=== PATIENT | female | born 1945 | race Caucasian/White ===

== ENCOUNTER 2017-12-13 09:10 | Outpatient (CLI) | payer OTHER | END 2017-12-13 09:17 | disposition home or self-care (01) | LOC: MAMO-SONO 09:10 → NUCLEAR 10:00 | DX: Z12.31 Encounter for screening mammogram for malignant neoplasm of breast (principal); Z87.898 Personal history of other specified conditions; N62 Hypertrophy of breast ==

== ENCOUNTER 2017-12-13 10:07 | Outpatient (CLI) | payer OTHER | END 2017-12-13 10:30 | disposition home or self-care (01) | LOC: NUCLEAR 10:07 | DX: M81.0 Age-related osteoporosis without current pathological fracture (principal) ==

== ENCOUNTER 2018-12-17 08:21 | Outpatient (CLI) | payer OTHER | END 2018-12-17 19:30 | disposition home or self-care (01) | LOC: NUCLEAR 08:21 | DX: I87.2 Venous insufficiency (chronic) (peripheral) (principal) ==

== ENCOUNTER 2019-04-17 09:18 | Outpatient (CLI) | payer OTHER | END 2019-04-17 09:33 | disposition home or self-care (01) | LOC: SONOGRAMA 09:18 | DX: R10.84 Generalized abdominal pain (principal) ==

== ENCOUNTER 2019-12-29 10:48 | Outpatient (CLI) | payer OTHER | END 2019-12-29 10:59 | disposition home or self-care (01) | LOC: NUCLEAR 10:48 | PROVIDERS: ATTEND Internal Medicine Cardiovascular Disease | DX: M81.0 Age-related osteoporosis without current pathological fracture (principal) ==

== ENCOUNTER → 2019-12-29 | Outpatient (CLI) | payer OTHER | END | disposition home or self-care (01) | LOC: MAMO-SONO 09:44 | PROVIDERS: ATTEND Internal Medicine Cardiovascular Disease | DX: E04.2 Nontoxic multinodular goiter (principal); Z12.31 Encounter for screening mammogram for malignant neoplasm of breast; N64.59 Other signs and symptoms in breast ==

== ENCOUNTER 2020-11-25 08:37 | Outpatient (CLI) | payer OTHER | END 2020-11-25 08:46 | disposition home or self-care (01) | LOC: RAD 08:37 | DX: M25.562 Pain in left knee (principal) ==

== ENCOUNTER 2021-12-29 09:35 | Outpatient (CLI) | payer OTHER | END 2021-12-29 09:36 | disposition home or self-care (01) | LOC: MAMO-SONO 09:35 | PROVIDERS: ATTEND Internal Medicine Cardiovascular Disease | DX: N63.11 Unspecified lump in the right breast, upper outer quadrant (principal) ==

== ENCOUNTER 2021-12-29 11:13 | Outpatient (CLI) | payer OTHER | END 2021-12-29 11:16 | disposition home or self-care (01) | LOC: NUCLEAR 11:13 | DX: M85.80 Other specified disorders of bone density and structure, unspecified site (principal) ==

== ENCOUNTER → 2022-06-01 | Outpatient (CLI) | payer OTHER | END | disposition home or self-care (01) | LOC: TOM 06:59 | PROVIDERS: ATTEND Internal Medicine Cardiovascular Disease | DX: M12.9 Arthropathy, unspecified (principal) ==

== ENCOUNTER 2022-07-13 08:45 | Outpatient (CLI) | payer OTHER | END 2022-07-13 09:01 | disposition home or self-care (01) | LOC: RAD 08:45 | PROVIDERS: ATTEND Orthopaedic Surgery | DX: M25.512 Pain in left shoulder (principal); M25.551 Pain in right hip; M25.552 Pain in left hip; M25.561 Pain in right knee; M25.562 Pain in left knee ==

== ENCOUNTER → 2022-08-03 | Outpatient (CLI) | payer OTHER | END | disposition home or self-care (01) | LOC: SONOGRAMA 07:22 | DX: N01.3 Rapidly progressive nephritic syndrome with diffuse mesangial proliferative glomerulonephritis (principal) ==

== ENCOUNTER 2022-08-20 09:07 | Outpatient (CLI) | payer OTHER ==
[~2022-08-20] VITALS: Ht 152.4 cm; Wt 66.2 kg
== END 2022-08-20 09:14 | disposition home or self-care (01) ==
LOC: LAB 09:07
PROVIDERS: ATTEND Orthopaedic Surgery
DX: D64.89 Other specified anemias (principal); E88.89 Other specified metabolic disorders; D68.8 Other specified coagulation defects; N39.9 Disorder of urinary system, unspecified; Z22.322 Carrier or suspected carrier of Methicillin resistant Staphylococcus aureus; E11.9 Type 2 diabetes mellitus without complications; Z73.89 Other problems related to life management difficulty; I49.9 Cardiac arrhythmia, unspecified; I10 Essential (primary) hypertension

== ENCOUNTER 2022-08-20 13:07 | Outpatient (CLI) | payer OTHER | END 2022-08-20 13:16 | disposition home or self-care (01) | LOC: RAD 13:07 | PROVIDERS: ATTEND Orthopaedic Surgery | DX: M25.512 Pain in left shoulder (principal) ==

== ENCOUNTER 2022-08-30 12:00 | Inpatient (IN) | payer OTHER ==
[~2022-08-30] VITALS: Ht 152.4 cm; Wt 64.4 kg
[2022-08-31] MEDS ORDERED: SYNTHROID75 MCG PO (08:00)
[2022-08-31] MEDS ORDERED: LEVODOPA PO (08:02)
[2022-08-31] MEDS ORDERED: CARBIDOPA PO (08:02)
[2022-08-31] MEDS ORDERED: TOPROL XL50 M1 PO (08:02)
[2022-08-31] MEDS ORDERED: AMANTADINE100 M1 PO (08:04)
[2022-08-31] MEDS ORDERED: METFORMIN HCL500 M3 PO (08:04)
[2022-08-31] MEDS ORDERED: ATORVASTATIN CA10 MG PO (08:04)
[2022-08-31] MEDS ORDERED: FOSAMAX70 MG PO (08:05)
[2022-09-04] MEDS ORDERED: CARBIDOPA-LEVO1 EA13 (14:34)
[2022-09-04] MEDS ORDERED: XARELTO10 M1 (14:35)
[2022-09-04] MEDS ORDERED: ESCITALOPRAM OX10 MG (14:35)
== END 2022-09-06 18:03 | disposition home or self-care (01) | DRG 470 ==
LOC: O/R 09-04 09:51 → SURG 09-04 12:00 → SURH 09-04 18:56
PROVIDERS: ADMIT Orthopaedic Surgery; ATTEND Orthopaedic Surgery
PROC: 0SRD0J9 Replacement of Left Knee Joint with Synthetic Substitute, Cemented, Open Approach (ICD-10-PCS; principal; 2022-09-04 15:15)
DX: M19.012 Primary osteoarthritis, left shoulder (principal)
CPT/HCPCS: S2900; 27447

== ENCOUNTER 2022-12-14 13:06 | Emergency (ER) | payer OTHER ==
[~2022-12-14] VITALS: Ht 152.4 cm; Wt 65.3 kg
[~2022-12-14 13:06] MED LIST: AMANTADINE100 M1 PO; ATORVASTATIN CA10 MG PO; CARBIDOPA PO; CARBIDOPA-LEVO1 EA13; ESCITALOPRAM OX10 MG; FOSAMAX70 MG PO; LEVODOPA PO; METFORMIN HCL500 M3 PO; SYNTHROID75 MCG PO; TOPROL XL50 M1 PO; XARELTO10 M1
[2022-12-14] MEDS ORDERED: DICLOFENAC SODI50 MG PO (15:19)
== END 2022-12-14 15:44 | disposition home or self-care (01) ==
LOC: ER 13:06
DX: M25.561 Pain in right knee (principal); E78.00 Pure hypercholesterolemia, unspecified; E03.9 Hypothyroidism, unspecified; I10 Essential (primary) hypertension; G20.A1 Parkinson's disease without dyskinesia, without mention of fluctuations; M19.90 Unspecified osteoarthritis, unspecified site
CPT/HCPCS: 96372; 99284; J1885

== ENCOUNTER 2023-06-27 07:30 | Outpatient (CLI) | payer OTHER ==
[~2023-06-27 07:30] MED LIST changes: +DICLOFENAC SODI50 MG PO
[2023-06-27 08:56] LABS: ALBUMIN 3.7 gm/dL (3.4-5.0); BILIRUBIN TOTAL 1.48 mg/dL (0.3-1.2); CALCIUM 9.3 mg/dL (8.5-10.1); CREATININE SERUM 0.72 mg/dL (0.55-1.02); GFR 78.34; GLOBULINA 3.2 G/DL (2.4-3.5); MAGNESIUM 2.2 mg/dL (1.8-2.4); PHOSPHOROUS 3.4 mg/dL (2.5-4.9); POTASSIUM 3.94 mEq/L (3.5-5.1); TOTAL PROTEIN 6.9 gm/dL (6.4-8.2)
[2023-06-28 15:10] LABS: CALCIUM IONIZED 5.1 mg/dL (4.5-5.6)
== END 2023-06-27 07:31 | disposition home or self-care (01) ==
LOC: LAB 07:30
PROVIDERS: ATTEND Orthopaedic Surgery
DX: E55.9 Vitamin D deficiency, unspecified (principal); M85.9 Disorder of bone density and structure, unspecified; E56.1 Deficiency of vitamin K; E21.3 Hyperparathyroidism, unspecified; E88.89 Other specified metabolic disorders; M81.8 Other osteoporosis without current pathological fracture

== ENCOUNTER 2023-11-06 12:26 | Outpatient (CLI) | payer OTHER | END 2023-11-06 12:35 | disposition home or self-care (01) | LOC: SONOGRAMA 12:26 | PROVIDERS: ATTEND Internal Medicine Endocrinology, Diabetes & Metabolism | DX: E04.2 Nontoxic multinodular goiter (principal) ==

== ENCOUNTER 2023-11-18 12:30 | Outpatient (CLI) | payer OTHER | END 2023-11-18 12:32 | disposition home or self-care (01) | LOC: NUCLEAR 12:30 | PROVIDERS: ATTEND Orthopaedic Surgery | DX: M81.0 Age-related osteoporosis without current pathological fracture (principal) ==